=== PATIENT | female | born 1960 | race Two or more races ===

== ENCOUNTER 2024-04-29 19:19 | Inpatient (IN) | payer OTHER ==
[~2024-04-29] VITALS: Ht 160 cm; Wt 54.4 kg
[2024-04-29] MEDS ORDERED: PEPCID AC20 MG PO (19:40)
[2024-04-29] MEDS ORDERED: CRESTOR40 MG PO (19:41)
[2024-04-29] MEDS ORDERED: PROTONIX40 M1 PO (19:41)
--- NOTE | 2024-04-29 19:50 | NUR ---
PACIENTE ALERTA Y ORIENTADA X3. REFIERE VENIR POR VOMITOS. PACIENTE RECIEN OPERADA DE TIROIDES REFERIDA POR . PARA ADMISION. SE ESTIMAN VITALES Y SE UBICA.
[2024-04-29] MEDS ORDERED: PROMETHAZINE HCL 25 MG/ML AMPUL IM ONE (20:15)
[2024-04-29] MEDS ORDERED: FAMOTIDINE/PF 20 MG in 0.9 % SODIUM CHLORIDE 8 ML IV PUSH STA (20:15)
[2024-04-29] MEDS ORDERED: PANTOPRAZOLE SODIUM 40 MG in 0.9 % SODIUM CHLORIDE 8 ML IV PUSH STA (20:16)
[2024-04-29] MEDS ORDERED: 0.9 % SODIUM CHLORIDE 1,000 ML IV SCH ×2 (20:30→21:15)
[2024-04-29] MEDS ORDERED: MORPHINE SULFATE 4 MG/ML VIAL IV ONE (21:00)
[2024-04-29] MEDS ORDERED: CYCLOBENZAPRINE HCL 5 MG TABLET PO SCH (21:26)
[2024-04-29] MEDS ORDERED: PROMETHAZINE HCL 25 MG/ML AMPUL IM PRN (21:30)
[2024-04-29] MEDS ORDERED: ACETAMINOPHEN 500 MG GEL..CAP PO PRN (21:30)
[2024-04-29] MEDS ORDERED: TRAMADOL HCL 50 MG TABLET PO PRN (21:30)
--- NOTE | 2024-04-29 21:41 | NUR ---
SE ORIENTA A PACIENTE SOBRE TX MEDICO. SE COLECTAN MUESTRAS DE LABORATORIO Y SE CANALIZ A PACIENTE BAJO MEDIDAS ASEPTICAS. SE ADMINISTRAN MEDICAMENTOS CHAD ORDEN MEDICA.
[2024-04-29 21:55] LABS: HEMATOCRIT 38.9 % (36.0-45.00); MEAN CELL VOLUME 83.8 fL (80.00-100.00); MEAN CORPUSCULAR HGB CONC 33.4 g/dl (32.0-36.0); PLATELET COUNT 240 K/uL (150-450); RED BLOOD COUNT 4.64 M/uL (4.00-6.00); RED CELL DISTRIBUTION WIDTH 14.5 % (11.5-14.5)
[2024-04-29 22:10] LABS: ALBUMIN 3.6 gm/dL (3.4-5.0); BILIRUBIN TOTAL 0.43 mg/dL (0.3-1.2); CALCIUM 9.7 mg/dL (8.5-10.1); CREATININE SERUM 0.58 mg/dL (0.55-1.02); GFR 104.33; GLOBULINA 4.6 G/DL (2.4-3.5); POTASSIUM 3.96 mEq/L (3.5-5.1); TOTAL PROTEIN 8.2 gm/dL (6.4-8.2)
[2024-04-29 23:50] VITALS: BP 113/57; O2SAT 97
[2024-04-30 03:16] VITALS: BP 116/67; O2SAT 96
[2024-04-30 08:00] VITALS: BP 108/67; O2SAT 97
[2024-04-30] MEDS ORDERED: FAMOTIDINE/PF 20 MG in 0.9 % SODIUM CHLORIDE 8 ML IV PUSH SCH ×2 (09:00→21:00)
== END 2024-04-30 16:26 | disposition home or self-care (01) | DRG 921 ==
LOC: ER 19:21 → SURG 23:01
PROVIDERS: General Practice; ADMIT Surgery; ATTEND Surgery
DX: E89.89 Other postprocedural endocrine and metabolic complications and disorders (principal); R11.2 Nausea with vomiting, unspecified